=== PATIENT | female | born 2000 | race Asian ===

== ENCOUNTER 2019-05-29 14:53 | Emergency (ER) | payer BC ==
[~2019-05-29] VITALS: Ht 154.9 cm; Wt 57.3 kg
[2019-05-29 15:05] VITALS: BP 117/80; TEMP 98.7
[2019-05-29] MEDS ORDERED: CLARITIN 1010 MG/TAB PO (15:46)
[2019-05-29] MEDS ORDERED: PREDNISONE20 MG PO (16:53)
[2019-05-29] MEDS ORDERED: PEPCID40 MG PO (16:53)
[2019-05-29 17:05] VITALS: PULSE 69
== END 2019-05-29 17:05 | disposition home or self-care (01) ==
LOC: COL.ER 14:53
DX: T78.3XXA Angioneurotic edema, initial encounter (principal)
CPT/HCPCS: J7512